=== PATIENT | female | born 1960 | race Caucasian/White ===

== ENCOUNTER 2016-09-01 15:06 | Emergency (ER) | payer OTHER ==
[~2016-09-01] VITALS: Ht 152.4 cm; Wt 58.4 kg
[2016-09-01 15:10] VITALS: TEMP 37; Ht 152.4 cm; Wt 58.4 kg
[2016-09-01] MEDS ORDERED: SODIUM CHLORIDE 0.9% 1000ML 1,000 ML IV STA (15:35)
[2016-09-01] MEDS ORDERED: MoRPHine SULFATE 4 MG/ML 1 ML CARP\\VIAL IV PRN (15:45)
--- NOTE | 2016-09-01 15:52 | EMERGENCY ROOM VISIT NOTE ---
History First contact with patient: 15:28 Chief Complaint: REFERRED BY DOCTOR Stated Complaint: COLLAPSED LUNG History of Present Illness The patient is a 56 year old female who presents to the Emergency Room with complaints of right-sided chest pain and shortness of breath that started 4 days ago. Patient states she was reaching overhead when she felt discomfort in her right side and immediate pain, and has become progressively short of breath since that time. Patient denies any direct trauma to her chest. Pain is sharp , constant, worse with lying on her right side and taking deep breaths, 8/10. She denies fever/chills, chest pain, palpitations, syncope, hemoptysis. Patient states she went to urgent care today where they did a chest x-ray and told her they were concerned about a rib fracture and pneumothorax, probably sending her to the ER for further evaluation. 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 She denies any history of malignancy in the chest, radiation therapy to suggest, lung disease, or previous history of smoking. Review of Systems GENERAL: Denies fevers, chills, malaise, fatigue, unintentional weight changes. HEENT: Denies dizziness, visual problems, hearing loss, tinnitus. Denies difficulty swallowing or oral lesions. PULMONARY: + Shortness of breath. Denies cough, sputum production or hemoptysis. CARDIOVASCULAR: + Right anterior and lateral chest wall pain. Denies chest pain , palpitations, dyspnea on exertion, orthopnea or peripheral edema. GASTROINTESTINAL: Denies diarrhea, constipation, nausea, vomiting, or abdominal pain. GENITOURINARY: Denies dysuria, frequency, urgency or nocturia. NEUROLOGIC: Denies history of epilepsy, CVA, TIA or chronic headaches. MUSCULOSKELETAL: Denies history of joint tenderness/swelling. SKIN: Denies rashes or lesions. PSYCHIATRIC: Denies history of depression or mental illness. ENDOCRINE: Denies history of diabetes, thyroid disorders. Social History Smoking Status: Never Smoker Current/Historical Medications No Active Prescriptions or Reported Meds Allergies Coded Allergies: No Known Allergies (Unverified , 09/01/16) Physical Exam Vital Signs Date Time Temp Pulse Resp B/P (MAP) Pulse Ox O2 Delivery O2 Flow Rate FiO2 09/01/16 19:54 72 20 116/72 97 09/01/16 18:30 74 18 114/80 96 Room Air 09/01/16 16:08 87 18 127/84 96 Room Air 09/01/16 16:03 89 09/01/16 15:10 37.0 102 20 142/102 94 Room Air Physical Exam CONSTITUTIONAL: No acute distress. Well appearing and well nourished. Alert and oriented X 4 with normal affect. HEENT: Normocephalic, atraumatic. Pupils equal, round and reactive to light, EOMI. TMs normal. Pharynx normal. NECK: Supple, full active range of motion without discomfort. RESPIRATORY: Right lung sounds diminished in the base. Left lung sounds clear to auscultation with no wheezing, crackles, rhonchi or stridor. Equal expansion bilaterally. CARDIOVASCULAR: Regular rate and rhythm with no murmurs, rubs or gallops. Normal peripheral perfusion. No edema. CHEST WALL: There is moderate tenderness to palpation of the right lateral and anterior chest wall extending under the breast. No erythema, no ecchymosis or abrasion, no rash. No crepitus or palpable deformity. GASTROINTESTINAL: Soft, nontender, nondistended. Bowel sounds present in all quadrants. MUSCULOSKELETAL: Full range of motion of all joints without discomfort. INTEGUMENTARY: No rash or other significant dermatologic conditions noted. NEUROLOGIC: Cranial nerves II-XII grossly intact. No focal neurologic deficits noted. Medical Decision & Procedures ER Provider Diagnostic Interpretation: CT ANGIOGRAM OF THE CHEST CLINICAL HISTORY: COMPARISON STUDY: No previous studies for comparison. TECHNIQUE: Following the IV administration of mL of Optiray-320, CT angiogram of the thorax was performed from the thoracic inlet to the lung bases utilizing the pulmonary embolus protocol. Images are reviewed in the axial, sagittal, and coronal planes. IV contrast was administered without complication. MIP imaging was performed. CT DOSE: 320.01 mGy.cm FINDINGS: There is elevation right hemidiaphragm. There are multiple hepatic hypodensities. These approach water attenuation and are likely cysts. No pathologically enlarged axillary mediastinal or hilar lymph nodes were visualized. There was no evidence of thoracic aortic dilatation. There were no pulmonary artery filling defects to indicate acute pulmonary embolism. No pleural effusions are visualized. There are no areas of parenchymal consolidation to indicate a pneumonia. Atelectatic changes are evident most pronounced at the right lung base. IMPRESSION: 1. No CT evidence of acute pulmonary embolism 2. Elevation right hemidiaphragm. 3. No evidence of pneumonia Laboratory Results 09/01/16 15:50 Red Blood Count 4.92, Mean Corpuscular Volume 84.1, Mean Corpuscular Hemoglobin 28.3, Mean Corpuscular Hemoglobin Concent 33.6, Mean Platelet Volume 10.6, Neutrophils (%) (Auto) 74.6, Lymphocytes (%) (Auto) 13.3, Monocytes (%) (Auto) 9.2, Eosinophils (%) (Auto) 2.3, Basophils (%) (Auto) 0.5, Neutrophils # (Auto) 5.57, Lymphocytes # (Auto) 0.99, Monocytes # (Auto) 0.69, Eosinophils # (Auto) 0.17, Basophils # (Auto) 0.04 09/01/16 15:50 Test 09/01/16 15:50 09/01/16 16:25 White Blood Count 7.47 K/uL (4.8-10.8) Red Blood Count 4.92 M/uL (4.2-5.4) Hemoglobin 13.9 g/dL (12.0-16.0) Hematocrit 41.4 % (37-47) Mean Corpuscular Volume 84.1 fL (80-100) Mean Corpuscular Hemoglobin 28.3 pg (25-34) Mean Corpuscular Hemoglobin Concent 33.6 g/dl (32-36) Platelet Count 233 K/uL (130-400) Mean Platelet Volume 10.6 fL (7.4-10.4) Neutrophils (%) (Auto) 74.6 % Lymphocytes (%) (Auto) 13.3 % Monocytes (%) (Auto) 9.2 % Eosinophils (%) (Auto) 2.3 % Basophils (%) (Auto) 0.5 % Neutrophils # (Auto) 5.57 K/uL (1.4-6.5) Lymphocytes # (Auto) 0.99 K/uL (1.2-3.4) Monocytes # (Auto) 0.69 K/uL (0.11-0.59) Eosinophils # (Auto) 0.17 K/uL (0-0.5) Basophils # (Auto) 0.04 K/uL (0-0.2) Bedside Hemoglobin 14.3 g/dl (12.0-16.0) Bedside Hematocrit 42 % (37-47) RDW Standard Deviation 40.5 fL (36.4-46.3) RDW Coefficient of Variation 13.4 % (11.5-14.5) Immature Granulocyte % (Auto) 0.1 % Immature Granulocyte # (Auto) 0.01 K/uL (0.00-0.02) Prothrombin Time 10.0 SECONDS (9.0-12.0) Prothromb Time International Ratio 0.9 (0.9-1.1) Activated Partial Thromboplast Time 25.0 SECONDS (21.0-31.0) Partial Thromboplastin Ratio 1.0 Bedside Sodium 140 mEq/L (135-144) Bedside Potassium 4.0 mEq/L (3.3-5.0) Bedside Chloride 103 mEq/L (101-112) Bedside Total CO2 26 mEq/l (24-31) Anion Gap 17.0 mmol/L (16-25) Bedside Blood Urea Nitrogen 15 mg/dl (7-18) Bedside Creatinine 0.8 mg/dl (0.6-1.3) Est Creatinine Clear Calc Drug Dose 70.8 ml/min Estimated GFR () 110.4 Estimated GFR (Non- 95.2 BUN/Creatinine Ratio 21.0 (10-20) Bedside Glucose (other) 105 mg/dl (70-99) Calcium Level 8.8 mg/dl (8.5-10.1) Bedside Ionized Calcium (Janis) 1.23 mmol/l (1.12-1.32) Total Bilirubin 0.3 mg/dl (0.2-1) Aspartate Amino Transf (AST/SGOT) 20 U/L (15-37) Alanine Aminotransferase (ALT/SGPT) 37 U/L (12-78) Alkaline Phosphatase 90 U/L (45-117) Total Protein 6.5 gm/dl (6.4-8.2) Albumin 3.3 gm/dl (3.4-5.0) Globulin 3.2 gm/dl (2.5-4.0) Albumin/Globulin Ratio 1.0 (0.9-2) Urine Color YELLOW Urine Appearance CLEAR (CLEAR) Urine pH 6.5 (4.5-7.5) Urine Specific Diana 1.012 (1.000-1.030) Urine Protein NEG (NEG) Urine Glucose (UA) NEG (NEG) Urine Ketones NEG (NEG) Urine Occult Blood NEG (NEG) Urine Nitrite NEG (NEG) Urine Bilirubin NEG (NEG) Urine Urobilinogen NEG (NEG) Urine Leukocyte Esterase TRACE (NEG) Urine WBC (Auto) 1-5 /hpf (0-5) Urine RBC (Auto) 0-4 /hpf (0-4) Urine Hyaline Casts (Auto) 0 /lpf (0-5) Urine Epithelial Cells (Auto) 20-30 /lpf (0-5) Urine Bacteria (Auto) NEG (NEG) Medications Administered Medications (Trade) Dose Ordered Sig/Lisandro Route Start Time Stop Time Status Last Admin Dose Admin Morphine Sulfate (MoRPHine SULFATE INJ) 4 mg Q1H PRN IV 09/01/16 15:45 09/01/16 20:29 DC 09/01/16 16:07 4 MG Sodium Chloride 1,000 ml @ 999 mls/hr Q1H1M STAT IV 09/01/16 15:35 09/01/16 16:35 DC 09/01/16 16:07 999 MLS/HR ECG Indication: SOB/dyspnea Rate (beats per minute): 76 Rhythm: normal sinus Findings: no acute ischemic change (displaced, follow), no ectopy Comparison ECG Date: no prior available Medical Decision CC: Patient presenting with complaint of shortness of breath Interpretation of Labs: No leukocytosis, no anemia, no significant electrolyte abnormalities, normal renal function, normal liver enzymes. Differential Diagnosis: Includes, but not limited to pneumothorax, hemothorax, pneumonia, rib fracture, chest wall contusion, pleural effusion, pathogenic fracture, malignancy Medication Reconciliation: I attest that I have personally reviewed the patient' s current medication list. Vital signs review: I reviewed the patient's vital signs and interpret as follows: T: Afebrile; BP: Normotensive; HR: Initially tachycardic, improved after treatment; RR: Within normal limits; Pulse Ox: Within normal limits on room air. Blood pressure screening: The patient was found to have normal blood pressure on screening and does not require follow-up for repeat blood pressure check. Summary: Patient was evaluated at bedside, history of physical exam performed. Patient alert and oriented, in no acute distress and in no respiratory distress , resting quietly in the stretcher. She does have tenderness of the right chest wall with palpation, no deformities or crepitus. Mildly diminished lung sounds in the right base compared to left, but equal expansion of the chest wall. EKG evaluated at bedside, noted to be normal sinus rhythm with no concerning ischemic changes. Orders were placed at bedside for labs, EKG, IV pain medication, chest CT evaluate for pneumothorax. Patient discussed with Dr. Rojo, who agrees with my assessment and plan. Labs reviewed, as above in no acute abnormalities. Chest CT reviewed, no acute abnormalities, specifically no rib fractures and no pneumothorax. Also negative for PE. Patient reassessed multiple times throughout ED stay, she is greatly improved after IV morphine, stating her pain is fully resolved. She no longer complains of shortness of breath. Patient was ambulated, maintaining normal oxygen saturation on room air and no persistent shortness of breath with exertion. Patient was updated on all results and plan for discharge home. Suspect she most likely has a muscle strain of the chest wall causing her pain. Patient was educated on treatment for management of her symptoms, and was instructed to follow closely with her PCP. She verbalized understanding. Impression Primary Impression: Right-sided chest wall pain Additional Impression: Musculoskeletal chest pain Departure Information Dispostion Home / Self-Care Condition GOOD Prescriptions No Active Prescriptions or Reported Meds Referrals Elli Velazquez D.O. (PCP) Patient Instructions ED Chest Pain Costochondritis, [facility] Additional Instructions You have been treated in the Emergency Department your Chest Pain. Laboratory results and imaging studies have ruled out any emergent causes for your abdominal pain which would warrant admission or surgery. Specifically, there is no evidence of rib fractures or pneumothorax/lung collapse on CT scan. For pain control, you can use the following [id number] medicines (if >12 yo): - Regular strength (325mg/tab) Tylenol (acetaminophen) 2 tabs every 4-6 hours as needed. Do not exceed 10 tablets in a 24 hour period. Avoid taking more than 3 grams (3000 mg) of Tylenol per day. This includes any other sources of acetaminophen you may take on a regular basis. - Regular strength (200 mg/tab) Advil (ibuprofen) 1-2 tabs every 4-6 hours as needed. Do not exceed a dose of 3200 mg per day. Alternate between ice and heat to the area of pain to help with discomfort. Drink plenty of water and stay well hydrated. As with any trip to the Emergency Department, you should follow-up with your Primary Care Provider in 2-3 days from today's visit. Return to the emergency department if your symptoms persist despite treatment plan outlined above or if the following symptoms occur: fevers, chills, vomiting or coughing up blood, severe dizziness or passing out, worsening shortness of breath, or any other concerns. Problem Qualifiers
[2016-09-01 16:02] LABS: ISTAT CREATININE 0.8 mg/dl (0.6-1.3); ISTAT HEMOGLOBIN 14.3 g/dl (12.0-16.0); ISTAT IONIZED CALCIUM 1.23 mmol/l (1.12-1.32)
[2016-09-01 16:12] LABS: BASO % 0.5 %; BASO ABS # 0.04 K/uL (0-0.2); COMPLETE YES; EOS % 2.3 %; HEMATOCRIT 41.4 % (37-47); IG% 0.1 %; LYMPH % 13.3 %; LYMPH ABS # 0.99 K/uL (1.2-3.4); MEAN CELL VOLUME 84.1 fL (80-100); MEAN CORPUSCULAR HEMOGLOBIN 28.3 pg (25-34); MEAN CORPUSCULAR HGB CONC 33.6 g/dl (32-36); MEAN PLATELET VOLUME 10.6 fL (7.4-10.4); MONO % 9.2 %; NEUT % 74.6 %; PLATELET COUNT 233 K/uL (130-400); RED BLOOD COUNT 4.92 M/uL (4.2-5.4); WHITE BLOOD COUNT 7.47 K/uL (4.8-10.8)
[2016-09-01 16:21] LABS: INR 0.9 (0.9-1.1)
[2016-09-01 16:53] LABS: CALCIUM 8.8 mg/dl (8.5-10.1); CREATININE 0.71 mg/dl (0.60-1.20); POTASSIUM 4.1 mmol/L (3.5-5.1)
[2016-09-01] MEDS ORDERED: OPTIRAY 320 IV PRN (17:30)
--- NOTE | 2016-09-01 18:31 | DIAGNOSTIC IMAGING REPORT ---
CT ANGIOGRAM OF THE CHEST CLINICAL HISTORY: COMPARISON STUDY: No previous studies for comparison. TECHNIQUE: Following the IV administration of mL of Optiray-320, CT angiogram of the thorax was performed from the thoracic inlet to the lung bases utilizing the pulmonary embolus protocol. Images are reviewed in the axial, sagittal, and coronal planes. IV contrast was administered without complication. MIP imaging was performed. CT DOSE: 320.01 mGy.cm FINDINGS: There is elevation right hemidiaphragm. There are multiple hepatic hypodensities. These approach water attenuation and are likely cysts. No pathologically enlarged axillary mediastinal or hilar lymph nodes were visualized. There was no evidence of thoracic aortic dilatation. There were no pulmonary artery filling defects to indicate acute pulmonary embolism. No pleural effusions are visualized. There are no areas of parenchymal consolidation to indicate a pneumonia. Atelectatic changes are evident most pronounced at the right lung base. IMPRESSION: 1. No CT evidence of acute pulmonary embolism 2. Elevation right hemidiaphragm. 3. No evidence of pneumonia Electronically signed by: Jorge Alberto Hare M.D. 09/01/2016 6:30 PM Dictated Date/Time: 09/01/2016 6:27 PM
[2016-09-01 18:44] LABS: URINE APPEARANCE CLEAR (CLEAR); URINE BILIRUBIN NEG (NEG); URINE COLOR YELLOW; URINE EPITHELIAL CELL AUTO 20-30 /lpf (0-5); URINE NITRITE NEG (NEG); URINE PH 6.5 (4.5-7.5); URINE SPECIFIC GRAVITY 1.012 (1.000-1.030); UROBILINOGEN NEG (NEG)
[2016-09-01 18:55] LABS: MANUAL MICROSCOPIC REQUIRED? NO; REVIEW REQ? NO
[2016-09-01 19:54] VITALS: BP 116/72; PULSE 72; O2SAT 97
== END 2016-09-01 19:56 | disposition home or self-care (01) ==
LOC: C.EDB 15:07 → C.EDC 19:56
DX: R07.89 Other chest pain (principal); Z85.068 Personal history of other malignant neoplasm of small intestine